=== PATIENT | male | born 1970 | race Caucasian/White ===

== ENCOUNTER 2024-01-30 10:44 | Emergency (ER) | payer BC ==
[~2024-01-30] VITALS: Ht 180.3 cm; Wt 113.6 kg
[2024-01-30 10:47] VITALS: TEMP 97.7
[2024-01-30] MEDS ORDERED: NS 1,000 ML IV ONE ×2 (11:15→13:00)
[2024-01-30] MEDS ORDERED: Ondansetron 4 MG/2 ML VIAL IV ONE (11:30)
[2024-01-30 11:40] LABS: BASO # 0.1 K/mm3 (0.0-0.2); BASO % 0.6 % (0.0-2.0); GRAN % 78.5 % (42.2-75.2); LYMPH # 1.1 K/mm3 (1.2-3.4); LYMPH % 9.5 % (20.0-51.0); MEAN CELL VOLUME 84 fl (80.0-100.0); MEAN CORPUSCULAR HGB CONC 36 g/dl (33.0-37.0); MEAN PLATELET VOLUME 9.8 fl (7.4-10.4); MONO # 1.2 K/mm3 (0.1-0.6); MONO % 10.8 % (1.7-9.3); PLATELET COUNT 212 K/mm3 (130-400); RED BLOOD COUNT 6.29 M/mm3 (4.20-5.60); REDCELL DISTRIBUTION WIDTH-CV 11.9 % (11.5-14.5)
[2024-01-30 11:58] LABS: HEMOGLOBIN 19.2 g/dl (13.5-18.0); MEAN CORPUSCULAR HEMOGLOBIN 31 pg (27-31)
[2024-01-30 11:59] LABS: ALBUMIN 3.9 g/dL (3.5-5.0); BILIRUBIN,TOTAL 0.5 mg/dL (0.2-1.2); CALCIUM 9.2 mg/dL (8.4-10.2); POTASSIUM 3.2 mEq/L (3.5-4.5); TOTAL PROTEIN 8.8 g/dl (6.2-8.1)
[2024-01-30 12:49] LABS: CREATININE, serum 2.82 mg/dL (0.72-1.25)
[2024-01-30] MEDS ORDERED: Loperamide 2 MG CAP PO ONE (13:00)
[2024-01-30] MEDS ORDERED: ANTI-DIARRHEAL2 MG PO (13:05)
[2024-01-30 15:23] LABS: URINE APPEARANCE CLOUDY (CLEAR/HAZY); URINE BLOOD 1+ (NEGATIVE); URINE COLOR YELLOW (YELLOW); URINE GLUCOSE NEGATIVE (NEGATIVE); URINE KETONE NEGATIVE (NEGATIVE); URINE NITRATE NEGATIVE (NEGATIVE); URINE PROTEIN(semi-quant) 2+ (NEGATIVE); URINE UROBILINOGEN 0.2 E.U/dL (0.2-1.0)
[2024-01-30 15:48] LABS: SQUAMOUS EPITHELIAL 0-2 /hpf (0-10); URINE RBC 0-2 /hpf (0-2)
[2024-01-30 15:52] LABS: COLLECTION METHOD CLEAN CATCH
[2024-01-30 16:09] VITALS: BP 111/78; PULSE 93
== END 2024-01-30 16:12 | disposition home or self-care (01) ==
LOC: COL.ER 10:44
PROVIDERS: Physician Assistant
DX: A08.4 Viral intestinal infection, unspecified (principal); E86.0 Dehydration
CPT/HCPCS: J2405; J7030